=== PATIENT | female | born 1965 | race Caucasian/White ===

== ENCOUNTER 2018-09-26 08:43 | Emergency (ER) | payer MEDICAID ==
[2018-09-26 09:01] VITALS: BP 149/77
[2018-09-26] MEDS ORDERED: Ketorolac 60 MG/2 ML SDV ONE ×2 (09:11→09:20)
[2018-09-26] MEDS ORDERED: Ketorolac 60 MG/2 ML SDV IM ONE (09:12)
[2018-09-26] MEDS ORDERED: Ketorolac 10 MG Tab ONE ×2 (09:23→09:30)
--- NOTE | 2018-09-26 09:25 | EDM.PDOC ---
ED HPI GENERAL MEDICAL PROBLEM - General Chief Complaint: Abdominal Pain Stated Complaint: ABD AND LEG PAIN Time Seen by Provider: 09/26/18 08:45 Source of Information: Reports: Patient History Limitations: Reports: No Limitations - History of Present Illness INITIAL COMMENTS - FREE TEXT/NARRATIVE: According to patient she has been having left sided back pain for past 3 days now. Pain has been getting worse over the past 3 days. Hurts to bend forward, twisting or turning activities of the lower back. Hurts to roll over in hte bed. Pain now radiates into her left lower abdominal wall. No weakness, tingling or numbness in the legs. 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 Cannot lift any thing heavy due to back pain. Also patient claims that she has been having increased frequency of urination since yesterday. No dysuria, no fever or chills. No Nausea or vomiting. Onset: Gradual Onset Date: 09/23/18 Duration: Getting Worse Quality: Reports: Ache Severity: Moderate Improves with: Reports: None Worsens with: Reports: None Associated Symptoms: Denies: Confusion, Chest Pain, Cough, Diaphoresis, Fever/ Chills, Headaches, Nausea/Vomiting, Rash, Seizure, Shortness of Breath, Syncope , Weakness left lower abd Pain Score (Numeric/FACES): 8 - Related Data Allergies Allergy/AdvReac Type Severity Reaction Status Date / Time BACTRIM Allergy Arrhythmias Uncoded 09/26/18 09:01 Home Meds: Home Meds Sertraline HCl 50 mg PO ACDINNER 11/29/14 [History] ED ROS GENERAL - Review of Systems Review Of Systems: See Below Constitutional: Denies: Fever, Chills HEENT: Denies: Ear Pain, Rhinitis, Throat Pain Respiratory: Denies: Shortness of Breath, Pleuritic Chest Pain, Cough, Sputum Cardiovascular: Denies: Chest Pain, Lightheadedness GI/Abdominal: Denies: Abdominal Pain, Constipation, Diarrhea, Nausea, Vomiting : Reports: Frequency, Urgency. Denies: Discharge, Dysuria Musculoskeletal: Reports: Back Pain. Denies: Joint Pain, Joint Swelling, Muscle Pain, Muscle Stiffness Skin: Denies: Bruising, Pruritis, Rash Neurological: Denies: Confusion, Dizziness, Headache, Numbness, Tingling, Weakness ED EXAM, GENERAL - Physical Exam Exam: See Below Exam Limited By: No Limitations General Appearance: Alert, WD/WN, Mild Distress Eye Exam: Bilateral Eye: EOMI, PERRL Ears: Normal External Exam, Normal Canal, Hearing Grossly Normal, Normal TMs Ear Exam: Bilateral Ear: Auricle Normal, Canal Normal, TM normal Nose: Normal Inspection, Normal Mucosa, No Blood Throat/Mouth: Normal Inspection, Normal Lips, Normal Teeth, Normal Gums, Normal Oropharynx, Normal Voice, No Airway Compromise Head: Atraumatic, Normocephalic Neck: Normal Inspection, Supple, Non-Tender, Full Range of Motion Respiratory/Chest: No Respiratory Distress, Lungs Clear, Normal Breath Sounds, No Accessory Muscle Use, Chest Non-Tender Cardiovascular: Normal Peripheral Pulses, Regular Rate, Rhythm, No Edema, No Gallop, No JVD, No Murmur, No Rub GI/Abdominal: Normal Bowel Sounds, Soft, Non-Tender, No Organomegaly, No Distention, No Abnormal Bruit, No Mass, Other (abdominal wall pain over the left lateral abdominakl wall and also tender along the left iliac crest.) Back Exam: Normal Inspection, Full Range of Motion, Muscle Spasm, Paraspinal Tenderness (left lumbar parapsinal muscles. spasm), Other (Significant tenderness over the left SI joint and also decreased SLR of 40 degrees on the left side.). No: Vertebral Tenderness Course - Vital Signs Text/Narrative:: Pt reassured that she has left SI joint strain, probably related to her work. She has not immediately taken care of it and continued to work and has progressively got worse. Pt did received toradol 60mg IM. Also started her on toradol 10mg 3 times daily. Flexeril 10mg at bedtime. Intermittent heat to the lower back 3-4 times daily. Avoid bending, squatting, twisting and truing activities of the lower back. Given her off work until next Friday to help with pain. Pain should gradually improve. Pt UA is negative. Advised to drink plenty of fluids and 1-2 glas of cranberry juice.. Followup in clinic if her urinary symptoms worsen. Last Recorded V/S: Last Vital Signs Temp 98.4 F 09/26/18 08:47 Pulse 64 09/26/18 08:47 Resp 18 09/26/18 08:47 BP 149/77 H 09/26/18 08:47 Pulse Ox 100 09/26/18 08:47 - Orders/Labs/Meds Labs: Laboratory Tests 09/26/18 Range/Units 09:15 Urine Color Yellow Urine Appearance Clear (CLEAR) Urine pH 7.0 (5.0-8.0) Ur Specific [place] 1.015 (1.003-1.030) Urine Protein Negative (NEGATIVE) mg/dL Urine Glucose (UA) Negative (NEGATIVE) mg/dL Urine Ketones Negative (NEGATIVE) mg/dL Urine Occult Blood Negative (NEGATIVE) Urine Nitrite Negative (NEGATIVE) Urine Bilirubin Negative (NEGATIVE) Urine Urobilinogen 0.2 (0.2-1.0) E.U./dL Ur Leukocyte Esterase Trace H (NEGATIVE) Urine RBC Not seen /HPF Urine WBC 0-5 H /HPF Ur Squamous Epith Cells Rare /HPF Urine Bacteria Rare /HPF Meds: Medications Discontinued Medications Generic Name Dose Route Start Last Admin Trade Name Freq PRN Reason Stop Dose Admin Ketorolac Tromethamine Confirm 09/26/18 09:11 Toradol Administered 09/26/18 09:12 Dose 60 mg .ROUTE .STK-MED ONE Ketorolac Tromethamine 60 mg 09/26/18 09:12 Toradol IM 09/26/18 09:13 ONETIME ONE Ketorolac Tromethamine Confirm 09/26/18 09:23 Toradol Administered 09/26/18 09:24 Dose 60 mg .ROUTE .STK-MED ONE Departure - Departure Time of Disposition: 09:30 Disposition: Home, Self-Care 01 Condition: Fair Clinical Impression: Sacroiliac strain Qualifiers: Encounter type: initial encounter Qualified Code(s): S39.012A - Strain of muscle, fascia and tendon of lower back, initial encounter - Discharge Information *PRESCRIPTION DRUG MONITORING PROGRAM REVIEWED*: Not Applicable *COPY OF PRESCRIPTION DRUG MONITORING REPORT IN PATIENT TERESA: Not Applicable Instructions: Sciatica, [id number] Referrals: PCP,None [Primary Care Provider] - Forms: ED Department Discharge, ED Return to Work/School Form Additional Instructions: Do Not bend, turn, or twist. Use heat intermittenly for the pain. Do not use motrin, aleve, or ibuprofen while you are taking the toradol - Problem List & Annotations (1) Sacroiliac strain SNOMED Code(s): 939953027, [id number] Code(s): S39.012A - STRAIN OF MUSCLE, FASCIA AND TENDON OF LOWER BACK, INIT Status: Acute Qualifiers: Encounter type: initial encounter Qualified Code(s): S39.012A - Strain of muscle, fascia and tendon of lower back, initial encounter - Problem List Review Problem List Initiated/Reviewed/Updated: Yes - Assessment/Plan Assessment:: Left sacroiliac strain urinary frequency NOS Plan: Pt reassured that she has left SI joint strain, probably related to her work. She has not immediately taken care of it and continued to work and has progressively got worse. Pt did received toradol 60mg IM. Also started her on toradol 10mg 3 times daily. Flexeril 10mg at bedtime. Intermittent heat to the lower back 3-4 times daily. Avoid bending, squatting, twisting and truing activities of the lower back. Given her off work until next Friday to help with pain. Pain should gradually improve. Pt UA is negative. Advised to drink plenty of fluids and 1-2 glas of cranberry juice.. Followup in clinic if her urinary symptoms worsen.
[2018-09-26] MEDS ORDERED: Cyclobenzaprine 10 MG Tab ONE (09:30)
== END 2018-09-26 09:25 | disposition home or self-care (01) ==
LOC: LB.ED 08:43
DX: S39.012A Strain of muscle, fascia and tendon of lower back, initial encounter (principal); R35.0 Frequency of micturition; Z88.1 Allergy status to other antibiotic agents; X50.9XXA Other and unspecified overexertion or strenuous movements or postures, initial encounter
CPT/HCPCS: 81001; 96372; 99284; A9270-GY; J1885